=== PATIENT | male | born 2000 | race Caucasian/White ===

== ENCOUNTER 2023-07-06 16:52 | Emergency (ER) | payer OTHER ==
[2023-07-06] MEDS ORDERED: cefTRIAXone (ROCEPHIN) 500 MG VIAL ONE ×2 (17:23→17:26)
[2023-07-06] MEDS ORDERED: Lidocaine 1% MPF 2 ML VIAL ONE (17:28)
[2023-07-06 18:03] LABS: Bacteria/HPF None Seen HPF (None Seen); Bilirubin Negative (Negative); Blood, Urine Negative (Negative); CAUTI Indications for Culture Pelvic or flank pain; Clarity Clear (Clear); Glucose, Urine (Dipstick) Normal (Negative); Ketone, Urine Negative (Negative); Leukocyte Negative Leu/uL (Negative); Nitrite Negative (Negative); Protein, Urine (Dipstick) Negative (Neg-Trace); RBC/HPF None Seen HPF (0-3); Squamous Epithelial None Seen HPF (0-3); Urobilinogen Normal mg/dL (Less than 2); WBC/HPF 0-3 HPF (0-3); pH, Urine 6.5 (5.0-9.0)
[2023-07-06 18:09] LABS: Urine Culture Reflex No No
[2023-07-06 18:33] LABS: HIV (1/2) Antibody/Antigen Non-Reactive (NonReactive); HIV 1/2 INDEX 0.19 S/CO (<1.00)
[2023-07-06] MEDS ORDERED: Ketorolac Tromethamine 30 MG/ML VIAL ONE (19:19)
[2023-07-07 00:35] LABS: Chlam.trachomatis by PCR,Urine Not Detected (NotDetected); GC N.gonorrhoeae PCR,UrineVOID Not Detected (NotDetected)
[2023-07-07 14:53] LABS: Syphilis Antibody Nonreactive (Nonreactive); Syphilis Antibody Index 0.05 S/CO (<1.00 Non-Reactive)
== END 2023-07-06 19:27 | disposition home or self-care (01) ==
LOC: ERS 16:52
DX: N50.812 Left testicular pain (principal)
CPT/HCPCS: 36415; 76870; 81001; 86780; 87389; 87491; 87591; 93976; 96372; J0696; J1885